=== PATIENT | male | born 1975 | race Caucasian/White ===

== ENCOUNTER 2018-09-15 13:46 | Emergency (ER) | payer BC, SELFPAY ==
[2018-09-15] MEDS ORDERED: Acetaminophen/HYDROcodone 325-5 MG Tab PO ONE ×2 (14:18→14:39)
--- NOTE | 2018-09-15 14:19 | EDM.PDOC ---
ED HPI GENERAL MEDICAL PROBLEM - General Chief Complaint: Genitourinary Problem Stated Complaint: ERECTION FOR 25 HRS Time Seen by Provider: 09/15/18 13:58 Source of Information: Reports: Patient History Limitations: Reports: No Limitations - History of Present Illness INITIAL COMMENTS - FREE TEXT/NARRATIVE: Patient is a 43-year-old male who presents to the ED complaining of a erection for the past 25 hours. Patient states he has been on trazodone for the past 4 months. States one of the serious side effects with taking trazodone is priapism. He thought the erection would go away on its own accord thus held off from being evaluated. This was a non-provoked erection. In addition he admits to using marijuana. Last use was last night. Denies any other recreational drugs. He has had no episode as such in the past. He has been able to urinate. Penis Pain Score (Numeric/FACES): 8 - Related Data Allergies Allergy/AdvReac Type Severity Reaction Status Date / Time morphine AdvReac Nausea Uncoded 03/03/16 16:34 Home Meds: Home Meds oxyCODONE HCl/Acetaminophen [oxyCODONE-Acetaminophen 5-325] 1 - 2 each PO Q4H PRN #20 tablet 03/02/16 [Rx] traZODone HCl [Trazodone HCl] 100 mg PO DAILY 09/15/18 [History] Past Medical History HEENT History: Reports: Impaired Vision, Other (See Below) Other HEENT History: Glasses Cardiovascular History: Reports: Hypertension Respiratory History: Reports: Asthma Gastrointestinal History: Reports: Cholelithiasis Neurological History: Reports: Migraines Oncologic (Cancer) History: Reports: None Dermatologic History: Reports: Other (See Below) - Past Surgical History GI Surgical History: Reports: Cholecystectomy Musculoskeletal Surgical History: Reports: Other (See Below) Dermatological Surgical History: Reports: Other (See Below) Social & Family History - Family History Family Medical History: Noncontributory - Tobacco Use Smoking Status *Q: Never Smoker - Caffeine Use Caffeine Use: Reports: Coffee, Energy Drinks, Soda - Recreational Drug Use Recreational Drug Type: Reports: Marijuana/Hashish - Living Situation & Occupation Living situation: Reports: Occupation: Employed ED ROS GENERAL - Review of Systems Review Of Systems: ROS reveals no pertinent complaints other than HPI. ED EXAM, RENAL/ - Physical Exam Exam: See Below Exam Limited By: No Limitations General Appearance: Alert, WD/WN, No Apparent Distress Ears: Hearing Grossly Normal Nose: Normal Inspection Throat/Mouth: Normal Voice, No Airway Compromise Head: Atraumatic, Normocephalic Neck: Normal Inspection, Supple Respiratory/Chest: No Respiratory Distress, Lungs Clear, Normal Breath Sounds, No Accessory Muscle Use Cardiovascular: Normal Peripheral Pulses, Regular Rate, Rhythm GI/Abdominal: Normal Bowel Sounds, Soft, Non-Tender, No Organomegaly, No Distention (Male) Exam: Circumcised, Other (Priapism present. Skin pink and warm. ). No : Scrotum Tenderness (L), Scrotum Tenderness (R), Testicular Tenderness (L), Testicular Tenderness (R), Urethral Discharge Back Exam: Normal Inspection Neurological: Alert, Oriented, CN II-XII Intact, Normal Cognition, No Motor/ Sensory Deficits Psychiatric: Normal Affect, Normal Mood Skin Exam: Warm, Dry, Intact, Normal Color Course - Vital Signs Last Recorded V/S: Last Vital Signs Temp 98.6 F 09/15/18 13:58 Pulse 95 09/15/18 14:47 Resp 20 09/15/18 13:58 BP 156/104 H 09/15/18 14:47 Pulse Ox 99 09/15/18 13:58 - Orders/Labs/Meds Orders: Active Orders 24 hr Category Date Time Status DRUG SCREEN, URINE [URCHEM] Stat Lab 09/15/18 14:17 Ordered Meds: Medications Discontinued Medications Generic Name Dose Route Start Last Admin Trade Name Vladimirq PRN Reason Stop Dose Admin Hydrocodone Bitart/Acetaminophen 2 tab 09/15/18 14:18 [place] 325-5 Mg PO 09/15/18 14:19 ONETIME ONE Hydrocodone Bitart/Acetaminophen 1 tab 09/15/18 14:39 09/15/18 14:42 [place] 325-5 Mg PO 09/15/18 14:40 1 tab ONETIME ONE Administration - Re-Assessments/Exams Free Text/Narrative Re-Assessment/Exam: I have ordered [place] 5/325mg 2 tabs by mouth. This was changed one tablet only. [address] Yeung with [facility]. States unfortunately he is unable to do anything at this point since the erection is past the 8 hour window. Highly likely patient will never have erection again. Recommended obtaining a drug screen. If the patient wishes to be evaluated by him he will need to be a direct admit to the floor. Patient wishes to be evaluated by urology. Discussed patient with Dr. [facility]. He has accepted the patient. Patient will go directly to #[id number]. Patient unable to provide a urine sample prior to discharge. Patient voiced his understanding that he cannot eat/drink or stop anywhere while en route to [facility]. will be driving the patient. Departure - Departure Time of Disposition: 14:26 Disposition: Home, Self-Care 01 Condition: Good Clinical Impression: Priapism, drug-induced - Discharge Information Instructions: Pain Medicine Instructions, [id number], Priapism Referrals: Caio Barnett Jr, MD [Primary Care Provider] - Forms: ED Department Discharge Additional Instructions: Go to the [facility] to be directly admitted to the floor. Dr. Fonseca will be the admitting hospitalists. Dr. Yeung with Urology will see you on the floor. Do not eat or drink anything with traveling to [facility]. Go straight to the hospital. - My Orders Last 24 Hours: My Active Orders 09/15/18 14:17 DRUG SCREEN, URINE [URCHEM] Stat - Assessment/Plan Last 24 Hours: My Active Orders 09/15/18 14:17 DRUG SCREEN, URINE [URCHEM] Stat
[2018-09-15 14:47] VITALS: BP 156/104
== END 2018-09-15 14:44 | disposition home or self-care (01) ==
LOC: JD.ED 13:46
DX: N48.33 Priapism, drug-induced (principal); T43.215A Adverse effect of selective serotonin and norepinephrine reuptake inhibitors, initial encounter; I10 Essential (primary) hypertension; Z88.5 Allergy status to narcotic agent; Z90.49 Acquired absence of other specified parts of digestive tract
CPT/HCPCS: 99284; A9270

== ENCOUNTER 2021-05-04 02:28 | Emergency (ER) | payer BC ==
[2021-05-04] MEDS ORDERED: Ampicillin/Sulbactam Na 3 GM in Sodium Chloride 0.9% 100 ML IV SCH (03:30)
[2021-05-04 06:17] VITALS: BP 168/109; PULSE 89
== END 2021-05-04 08:47 | disposition home or self-care (01) ==
LOC: JD.ED 02:28
DX: L03.114 Cellulitis of left upper limb (principal); I10 Essential (primary) hypertension; Z87.891 Personal history of nicotine dependence; Z88.5 Allergy status to narcotic agent; Z91.048 Other nonmedicinal substance allergy status; Z20.822 Contact with and (suspected) exposure to COVID-19
CPT/HCPCS: 36415; 80048; 85007; 85027; 87635; 87641; 96365; 96367; 99283; J0295; J3370; J7050; U0002